=== PATIENT | female | born 1980 | race Asian ===

== ENCOUNTER 2018-01-04 19:58 | Emergency (ER) | payer OTHER ==
[~2018-01-04] VITALS: Ht 142.2 cm; Wt 53.5 kg
[2018-01-04 19:59] VITALS: BP 157/90
[2018-01-04] MEDS ORDERED: ALBUTEROL SULFATE 2.5 MG/3 ML NEBU. NEB ONE (20:30)
[2018-01-04] MEDS ORDERED: predniSONE 10 MG TABLET PO ONE (21:00)
[2018-01-04] MEDS ORDERED: PRED50TA PO (21:20)
[2018-01-04] MEDS ORDERED: PROAIR HFA8.5 GM INH (21:20)
--- NOTE | 2018-01-04 21:21 | PHYS DOC ---
Past Medical History Past Medical History: No Pertinent History Past Surgical History: No Surgical History Alcohol Use: None Drug Use: None Adult General Chief Complaint Chief Complaint: SHORTNESS OF BREATH HPI HPI Patient is a 37 year old female who presents with a feeling of being short of air. The patient is not asthmatic. She denies cough or any recent illness. She denies leg pain or recent travel. She denies chest pain. Review of Systems Review of Systems Constitutional: Denies fever or chills [] Eyes: Denies change in visual acuity, redness, or eye pain [] HENT: Denies nasal congestion or sore throat [] Respiratory: See history of present illness Cardiovascular: No additional information not addressed in HPI [] GI: Denies abdominal pain, nausea, vomiting, bloody stools or diarrhea [] : Denies dysuria or hematuria [] Musculoskeletal: Denies back pain or joint pain [] Integument: Denies rash or skin lesions [] Neurologic: Denies headache, focal weakness or sensory changes [] Endocrine: Denies polyuria or polydipsia [] All other systems were reviewed and found to be within normal limits, except as documented in this note. Current Medications Current Medications Current Medications Medications (Trade) Dose Ordered Sig/Bob Start Time Stop Time Status Last Admin Dose Admin Albuterol Sulfate (Ventolin Neb Soln) 2.5 mg 1X ONCE 01/04/18 20:30 01/04/18 20:31 DC 01/04/18 20:29 2.5 MG Prednisone (Prednisone) 50 mg 1X ONCE 01/04/18 21:00 01/04/18 21:01 DC 01/04/18 20:46 50 MG Allergies Allergies Allergies Coded Allergies Type Severity Reaction Last Updated Verified No Known Drug Allergies 01/04/18 No Physical Exam Physical Exam Constitutional: Well developed, well nourished, no acute distress, non-toxic appearance. [] HENT: Normocephalic, atraumatic, bilateral external ears normal, oropharynx moist, no oral exudates, nose normal. [] Eyes: PERRLA, EOMI, conjunctiva normal, no discharge. [] Neck: Normal range of motion, no tenderness, supple, no stridor. [] Cardiovascular:Heart rate regular rhythm, no murmur [] Lungs & Thorax: Bilateral breath sounds clear to auscultation, slightly decreased in the bases [] Abdomen: Bowel sounds normal, soft, no tenderness, no masses, no pulsatile masses. [] Skin: Warm, dry, no erythema, no rash. [] Back: No tenderness, no CVA tenderness. [] Extremities: No tenderness, no cyanosis, no clubbing, ROM intact, no edema. [] Neurologic: Alert and oriented X 3, normal motor function, normal sensory function, no focal deficits noted. [] Psychologic: Affect normal, judgement normal, mood normal. [] Current Patient Data Vital Signs Vital Signs Date Time Temp Pulse Resp B/P (MAP) Pulse Ox O2 Delivery O2 Flow Rate FiO2 01/04/18 20:27 97 Room Air 01/04/18 19:59 98.1 74 20 157/90 (112) 98.1 EKG EKG [] Radiology/Procedures Radiology/Procedures [] Course & Med Decision Making Course & Med Decision Making Pertinent Labs and Imaging studies reviewed. (See chart for details) []The patient was given an albuterol nebulizer treatment in the emergency Department as well as a dose of prednisone. She states that this is relieving her symptoms. Dragon Disclaimer Dragon Disclaimer This electronic medical record was generated, in whole or in part, using a voice recognition dictation system. Departure Departure Impression: Primary Impression: Shortness of breath Disposition: 01 HOME, SELF-CARE Condition: STABLE Referrals: NO PCP (PCP) Patient Instructions: Shortness of Breath Additional Instructions: Take medications as directed. Follow-up with your primary care provider in 3 days if not improving or return to the emergency department if worsening. Scripts Albuterol Sulfate (PROAIR HFA INHALER) 8.5 Gm Hfa.aer.ad 1 PUFF INH PRN Q6HRS PRN for SHORTNESS OF BREATH, #1 INHALER 0 Refills Prov: ALDAIR YOUNG APRN 01/04/18 Prednisone (PREDNISONE) 50 Mg Tablet 1 TAB PO DAILY, #5 TAB Prov: ALDAIR YOUNG APRN 01/04/18 ALDAIR YOUNG APRN Jan 04, 2018 21:21
== END 2018-01-04 21:21 | disposition home or self-care (01) ==
LOC: ER 19:58
DX: R06.02 Shortness of breath (principal)
CPT/HCPCS: 94640; 99283; J7512; J7613